=== PATIENT | male | born 1955 | race Caucasian/White ===

== ENCOUNTER 2017-02-25 12:50 | Day surgery (SDC) | payer BC ==
[2017-02-25] MEDS ORDERED: LIDOCAINE/PF 1%-EPI 1:200K, 30 ML ONE (13:04)
== END 2017-02-25 14:15 ==
LOC: CACL 12:50
PROVIDERS: ATTEND Internal Medicine Cardiovascular Disease
DX: I48.91 Unspecified atrial fibrillation (principal); G47.33 Obstructive sleep apnea (adult) (pediatric)
CPT/HCPCS: 33282; C1764; J3490

== ENCOUNTER → 2018-03-25 | Outpatient (CLI) | payer BC ==
[~2018-03-25] MED LIST: LORA1TAB35 PO; MAGN400T36 PO; MULT-6 PO; OMNIPAQUE 350 MG/ML, 150 ML BOTTLE ONE; RED600CA2 PO; REGADENOSON 0.4 MG/5 ML SYRINGE ONE; RIVA20TA PO
== END | disposition home or self-care (01) ==
LOC: CFH 08:43
PROVIDERS: ATTEND Internal Medicine Cardiovascular Disease
DX: I48.0 Paroxysmal atrial fibrillation (principal)
CPT/HCPCS: 71046; 75572; 78452; 82565; 93017; A9502; J2785; Q9967

== ENCOUNTER 2018-03-28 06:32 | Observation (INO) | payer BC ==
[2018-03-25 12:01] VITALS: BP 114/80
[2018-03-25 12:40] LABS: BASOPHILS # (AUTO) 0.03 x10^3/uL (0-0.1); BASOPHILS % (AUTO) 0 % (0-1); EOSINOPHILS # (AUTO) 0.14 x10^3/uL (0-0.4); EOSINOPHILS % (AUTO) 2 % (1-7); LYMPHOCYTES # (AUTO) 1.95 x10^3/uL (1-3.4); LYMPHOCYTES % (AUTO) 30 % (22-44); MD NO; MEAN CORPUSCULAR HEMOGLOBIN 32.3 pg (27.5-34.5); MEAN CORPUSCULAR HGB CONC 34.1 g/dL (33.2-36.2); MEAN CORPUSCULAR VOLUME 94.5 fL (81-97); MEAN PLATELET VOLUME 8.5 fL (7.4-10.4); MONOCYTES % (AUTO) 9 % (2-9); NEUTROPHILS # (AUTO) 3.77 x10^3/uL (1.8-6.8); NEUTROPHILS % (AUTO) 58 % (42-75); PLATELET COUNT 251 x10^3/uL (130-400); RED BLOOD COUNT 4.81 x10^6/uL (4.38-5.82); RED CELL DISTRIBUTION WIDTH 13.4 % (9.4-14.8)
[2018-03-25 13:09] LABS: CHLORIDE 109 mmol/L (98-107)
[2018-03-25 13:17] LABS: ALANINE AMINOTRANSFERASE 35 U/L (12-78); ALBUMIN 3.9 g/dL (3.4-5.0); ALKALINE PHOSPHATASE 65 U/L (45-117); ANION GAP 8 mmol/L (5-15); BILIRUBIN,TOTAL 0.6 mg/dL (0.2-1.0); CALCIUM 8.8 mg/dL (8.5-10.1); CREATININE 1.19 mg/dL (0.7-1.3); TOTAL PROTEIN 7.2 g/dL (6.4-8.2)
[~2018-03-28] VITALS: Ht 172.7 cm; Wt 91.8 kg
[~2018-03-28 06:32] MED LIST changes: -LORA1TAB35 PO; -MAGN400T36 PO; -MULT-6 PO; -OMNIPAQUE 350 MG/ML, 150 ML BOTTLE ONE; -RED600CA2 PO; -REGADENOSON 0.4 MG/5 ML SYRINGE ONE
[2018-03-28] MEDS ORDERED: MULT-6 PO (06:53)
[2018-03-28] MEDS ORDERED: LORA1TAB35 PO (06:53)
[2018-03-28] MEDS ORDERED: MAGN400T36 PO (06:55)
[2018-03-28] MEDS ORDERED: RED600CA2 PO (06:55)
[2018-03-28] MEDS ORDERED: PROPOFOL 50 ML ONE (08:05)
[2018-03-28] MEDS ORDERED: MIDAZOLAM 1 MG/ML, 2ML ONE (08:06)
[2018-03-28] MEDS ORDERED: FENTANYL PF 250 MCG/5ML ONE (08:06)
[2018-03-28] MEDS ORDERED: ONDANSETRON 2MG/ML, 2ML ONE (08:14)
[2018-03-28] MEDS ORDERED: ROCURONIUM 10 MG/ML,10ML ONE (08:14)
[2018-03-28] MEDS ORDERED: DEXAMETHASONE 4 MG/ML, 1ML ONE (08:14)
[2018-03-28] MEDS ORDERED: SUCCINYLCHOLINE 20 MG/ML, 10ML ONE (08:14)
[2018-03-28] MEDS ORDERED: SODIUM CHLORIDE 0.9% 1,000 ML IV SCH ×2 (08:31→09:00)
[2018-03-28] MEDS ORDERED: HEPARIN 1,000 UNITS/ML, 10ML ONE ×2 (08:41)
[2018-03-28] MEDS ORDERED: PROTAMINE SULFATE 10 MG/ML, 5ML ONE (11:05)
[2018-03-28] MEDS ORDERED: RIVAROXABAN 20 MG TABLET ONE (11:14)
[2018-03-28] MEDS ORDERED: ZOLPIDEM 5MG TABLET PO PRN (11:30)
[2018-03-28] MEDS ORDERED: ACETAMINOPHEN 325 MG TABLET PO PRN ×2 (11:30→12:00)
[2018-03-28] MEDS ORDERED: FENTANYL PF 100 MCG/2ML IV PRN (12:00)
[2018-03-28] MEDS ORDERED: PROMETHAZINE 25 MG/ML, 1ML IV PRN (12:00)
[2018-03-28] MEDS ORDERED: PROMETHAZINE 25 MG SUPP PR PRN (12:00)
[2018-03-28] MEDS ORDERED: PROMETHAZINE 12.5 MG SUPP PR PRN (12:00)
[2018-03-28] MEDS ORDERED: MEPERIDINE/PF 25MG/0.5ML IVPush PRN (12:00)
[2018-03-28] MEDS ORDERED: EPHEDRINE 50 MG/ML, 1ML IM PRN (12:00)
[2018-03-28] MEDS ORDERED: OXYcodone 5 MG/5 ML ORAL.SOL UDC PO PRN (12:00)
[2018-03-28] MEDS ORDERED: DIPHENHYDRAMINE 50 MG/ML, 1ML IVPush PRN (12:00)
[2018-03-28] MEDS ORDERED: MORPHINE SULFATE 4 MG/ML, 1ML IVPush PRN (12:00)
[2018-03-28] MEDS ORDERED: ONDANSETRON 2MG/ML, 2ML IV PRN (12:00)
[2018-03-28] MEDS ORDERED: MIDAZOLAM 1 MG/ML, 2ML IV PRN (12:00)
[2018-03-28] MEDS ORDERED: ONDANSETRON ODT 8 MG PO PRN (12:00)
[2018-03-28] MEDS: RIVAROXABAN 20 MG TABLET PO SCH (13:50)
[2018-03-28 13:51] VITALS: BP 108/73
[2018-03-28 17:33] VITALS: BP 108/71
[2018-03-28] MEDS: SOTALOL 80MG TABLET PO SCH ×2 (17:37→17:38)
[2018-03-28 20:30] VITALS: BP 113/79
[2018-03-29 01:49] VITALS: BP 109/84
[2018-03-29] MEDS: SOTALOL 80MG TABLET PO SCH ×2 (05:36→16:56)
[2018-03-29 07:30] VITALS: BP 114/81
[2018-03-29] MEDS: MAGNESIUM OXIDE 400 MG TABLET PO SCH (07:47)
[2018-03-29] MEDS: MULTIVITAMIN 1 TABLET PO SCH (07:47)
[2018-03-29] MEDS: RIVAROXABAN 20 MG TABLET PO SCH (07:47)
[2018-03-29] MEDS: LORATADINE/PSE 5/120MG TAB.ER.12H PO SCH (08:57)
[2018-03-29] MEDS ORDERED: TEMPLATE NON-FORMULARY MED. (Red Yeast Rice** 1,200 MG) PO SCH (09:00)
[2018-03-29 13:47] VITALS: BP 141/85
[2018-03-29] MEDS ORDERED: DOCUSATE 100 MG CAPSULE PO PRN (14:30)
[2018-03-29 20:10] VITALS: BP 105/72
[2018-03-30 01:12] VITALS: BP 107/70
[2018-03-30] MEDS: SOTALOL 80MG TABLET PO SCH (05:52)
[2018-03-30] MEDS: LORATADINE/PSE 5/120MG TAB.ER.12H PO SCH (08:09)
[2018-03-30] MEDS: RIVAROXABAN 20 MG TABLET PO SCH (08:09)
[2018-03-30] MEDS: MAGNESIUM OXIDE 400 MG TABLET PO SCH (08:09)
[2018-03-30] MEDS: MULTIVITAMIN 1 TABLET PO SCH (08:09)
[2018-03-30 08:45] VITALS: BP 119/82
[2018-03-30] MEDS ORDERED: SOTA80TA18 PO (09:32)
== END 2018-03-30 10:43 | disposition home or self-care (01) ==
LOC: CACL 06:32 → ORIP 11:22 → INTOOBSV 11:22 → 5SO 12:46 → DCLOUNGE 03-30 10:33
PROVIDERS: ADMIT Internal Medicine Cardiovascular Disease; ATTEND Internal Medicine Cardiovascular Disease
DX: I48.91 Unspecified atrial fibrillation (principal); Z87.891 Personal history of nicotine dependence
CPT/HCPCS: 36415; 80053; 85025; 85347; 93005; 93308; 93312; 93321; 93325; 93613; 93656; 93662; C1730; C1732; C1759; C1766; C1893; C1894; G0378; J0330; J1100; J1644; J2250; J2405; J2704; J2720; J3010; 93621

== ENCOUNTER 2018-04-13 06:40 | Day surgery (SDC) | payer BC ==
[~2018-04-13] VITALS: Ht 172.7 cm; Wt 81.0 kg
[~2018-04-13 06:40] MED LIST changes: +LORA1TAB35 PO; +MAGN400T36 PO; +MULT-6 PO; +RED600CA2 PO; +SOTA80TA18 PO
[2018-04-13 07:01] VITALS: BP 133/88
[2018-04-13 07:25] LABS: BASOPHILS # (AUTO) 0.05 x10^3/uL (0-0.1); BASOPHILS % (AUTO) 1 % (0-1); EOSINOPHILS # (AUTO) 0.15 x10^3/uL (0-0.4); EOSINOPHILS % (AUTO) 3 % (1-7); LYMPHOCYTES # (AUTO) 1.86 x10^3/uL (1-3.4); LYMPHOCYTES % (AUTO) 32 % (22-44); MD NO; MEAN CORPUSCULAR HEMOGLOBIN 31.4 pg (27.5-34.5); MEAN CORPUSCULAR HGB CONC 33.7 g/dL (33.2-36.2); MEAN PLATELET VOLUME 8.3 fL (7.4-10.4); MONOCYTES # (AUTO) 0.57 x10^3/uL (0.2-0.8); MONOCYTES % (AUTO) 10 % (2-9); NEUTROPHILS # (AUTO) 3.11 x10^3/uL (1.8-6.8); NEUTROPHILS % (AUTO) 54 % (42-75); PLATELET COUNT 283 x10^3/uL (130-400); RED BLOOD COUNT 4.89 x10^6/uL (4.38-5.82); RED CELL DISTRIBUTION WIDTH 13.1 % (9.4-14.8)
[2018-04-13 07:33] LABS: ANION GAP 5 mmol/L (5-15); CALCIUM 9.1 mg/dL (8.5-10.1); CHLORIDE 112 mmol/L (98-107); CREATININE 1.26 mg/dL (0.7-1.3)
[2018-04-13] MEDS ORDERED: PROPOFOL 10 MG/ML, 20ML ONE (08:01)
== END 2018-04-13 09:29 | disposition home or self-care (01) ==
LOC: CACL 06:40
PROVIDERS: ATTEND Internal Medicine Cardiovascular Disease
DX: I48.0 Paroxysmal atrial fibrillation (principal); Z98.890 Other specified postprocedural states
CPT/HCPCS: 36415; 80048; 85025; 92960; 93005; J2704

== ENCOUNTER 2018-10-20 10:12 | Outpatient (CLI) | payer MEDICARE, BC | END 2018-10-20 23:59 | disposition home or self-care (01) | LOC: CFH 10:12 | PROVIDERS: ATTEND Internal Medicine Cardiovascular Disease | DX: Z01.818 Encounter for other preprocedural examination (principal); I48.0 Paroxysmal atrial fibrillation | CPT/HCPCS: 71046; 75572; Q9967 ==

== ENCOUNTER 2018-10-21 11:39 | Observation (INO) | payer MEDICARE, BC ==
[~2018-10-21] VITALS: Ht 172.7 cm; Wt 89.5 kg
[2018-10-22 08:15] VITALS: BP 109/67
== END 2018-10-22 12:15 | disposition home or self-care (01) ==
LOC: CACL 11:39 → ORIP 16:49 → 5SO 19:21 → DCLOUNGE 10-22 12:06
PROVIDERS: ADMIT Internal Medicine Cardiovascular Disease; ATTEND Internal Medicine Cardiovascular Disease
DX: I48.91 Unspecified atrial fibrillation (principal); Z79.01 Long term (current) use of anticoagulants
CPT/HCPCS: 85347; 93308; 93312; 93321; 93325; 93613; 93656; 93662; C1730; C1732; C1759; C1766; C1893; C1894; G0378; J0330; J1100; J1170; J1644; J2250; J2405; J2704; J3010; J3490